=== PATIENT | male | born 1935 | race Caucasian/White ===

== ENCOUNTER 2018-04-07 10:16 | Day surgery (SDC) | payer MEDICARE ==
[~2018-04-07 10:16] MED LIST: ANCEF/STERILE WATER 2 GM/20 ML 2 GM/20 ML SYRINGE IV NR
[2018-04-07 11:44] LABS: Basophils # (Auto) 0.1 K/mm3 (0.0-0.1); Basophils % (Auto) 0.6 % (0.0-1.8); Eosinophils # (Auto) 0.1 K/mm3 (0.0-0.4); Eosinophils % (Auto) 1.3 % (0.0-4.3); Hematocrit 38.5 % (35.5-45.6); Hemoglobin 12.5 gm/dl (11.8-15.2); Lymphocytes # (Auto) 2.9 K/mm3 (1.2-5.4); Lymphocytes % (Auto) 26.6 % (13.4-35.0); Mean Corpuscular HGB Conc 32 % (32-34); Mean Corpuscular Hemoglobin 27 pg (28-32); Mean Corpuscular Volume 84 fl (84-94); Monocytes # (Auto) 0.5 K/mm3 (0.0-0.8); Monocytes % (Auto) 4.8 % (0.0-7.3); Platelet Count 320 K/mm3 (140-440); Red Blood Count 4.61 M/mm3 (3.65-5.03); Red Cell Distribution Width 15.4 % (13.2-15.2)
[2018-04-07 11:53] LABS: Partial Thromboplastin Time 34.4 Sec. (24.2-36.6)
[2018-04-07 12:05] LABS: BUN/Creatinine Ratio 14; Blood Urea Nitrogen 11 mg/dL (9-20); Calcium 9.2 mg/dL (8.4-10.2); Hemolysis Index 7
--- NOTE | 2018-04-07 12:15 | Anesthesia Consultation ---
Anesthesia Consult and Med Hx Date of service: 04/07/18 - Airway Anesthetic Teeth Evaluation: Poor ROM Head & Neck: Adequate Mental/Hyoid Distance: Adequate Mallampati Class: Class II Intubation Access Assessment: Good - Pulmonary Exam CTA: Yes - Cardiac Exam Cardiac Exam: RRR - Pre-Operative Health Status ASA Pre-Surgery Classification: ASA3 Proposed Anesthetic Plan: General - Cardiovascular System Hx Hypertension: Yes Hx Coronary Artery Disease: Yes (CA with stent placement 09/2010) Hx Heart Attack/AMI: Yes (09/2010) Hx Pacemaker: Yes - Central Nervous System Hx Psychiatric Problems: No - Other Systems Hx Alcohol Use: No Hx Substance Use: No Hx Cancer: No
[2018-04-07] MEDS: NACL 0.9% 1000 ML 1,000 ML IV SCH ×2 (12:24→13:30)
[2018-04-07] MEDS ORDERED: HEPARIN/NS 5000 UNIT/500ML(CATH LAB) 1,000 ML IR ONE (12:56)
[2018-04-07] MEDS ORDERED: HEPARIN 10,000 UNITS/10 ML ONE (12:56)
[2018-04-07] MEDS ORDERED: XYLOCAINE 2% INFILTRATI ONE (12:56)
[2018-04-07] MEDS ORDERED: LACTATED RINGERS 1,000 ML IV SCH (13:00)
[2018-04-07] MEDS ORDERED: DECADRON ONE (13:09)
[2018-04-07] MEDS ORDERED: XYLOCAINE MPF 2% ONE (13:09)
[2018-04-07] MEDS ORDERED: VERSED IV ONE (13:10)
[2018-04-07] MEDS ORDERED: DIPRIVAN 10 MG/ML IV ONE ×3 (13:11→13:12)
--- NOTE | 2018-04-07 15:14 | Short Stay Summary ---
Short Stay Documentation Date of service: 04/07/18 - History Principal diagnosis: PVD with wounds right foot H&P: obtained from office - Allergies and Medications Current Medications: Allergies No Known Allergies Allergy (Unverified 02/21/18 08:30) Home Medications Medication Instructions Recorded Confirmed Last Taken Type Furosemide [Lasix TAB] 40 mg PO QDAY 02/21/18 04/07/18 04/06/18 08:30 History Aspirin [Aspirin TAB] 325 mg PO QDAY #100 tablet 02/23/18 04/07/18 04/06/18 08: 30 Rx Clopidogrel [Plavix] 75 mg PO QDAY #30 tablet 02/23/18 04/07/18 04/06/18 08:30 Rx Gabapentin [Neurontin] 300 mg PO BID #60 capsule 02/23/18 04/07/18 04/06/18 08: 30 Rx Metoprolol [Lopressor TAB] 50 mg PO BID tablet 02/23/18 04/07/18 04/07/18 Rx amLODIPine [Norvasc] 10 mg PO DAILY #30 tablet 02/23/18 04/07/18 04/07/18 Rx Glimepiride [Amaryl] 2 mg PO QAM 03/31/18 04/07/18 04/06/18 08:30 History Iron 27 mg PO QDAY 03/31/18 04/07/18 04/06/18 08:30 History Active Medications Cefazolin Sodium (Ancef/Sterile Water 2 Gm/20 Ml) 2 gm in 20 mls @ 80 mls/hr IV PREOP NR; Protocol Stop: 04/07/18 23:59 Sodium Chloride (Nacl 0.9% 1000 Ml) 1,000 mls @ 42 mls/hr IV DIRECT KAJAL Last Admin: 04/07/18 13:30 Dose: 42 mls/hr Lactated Ringer's (Lactated Ringers) 1,000 mls @ 42 mls/hr IV DIRECT KAJAL - Brief post op/procedure progress note Date of procedure: 04/07/18 Pre-op diagnosis: PVD with wounds right foot Post-op diagnosis: same Procedure: RLE revasc Anesthesia: local Surgeon: ROBERTO MOORE Estimated blood loss: minimal Pathology: none Condition: stable - Disposition Condition at discharge: Good Disposition: [id number] TO HOME OR SELFCARE Short Stay Discharge Plan Activity: advance as tolerated Weight Bearing Status: Weight Bear as Tolerated Diet: regular Wound: keep clean and dry, per your surgeon's advice Follow up with: JJ MCKNIGHT MD [Primary Care Provider] - 7 Days
--- NOTE | 2018-04-07 15:19 | Operative Report ---
Operative Report Operative Report: Exam: Right lower extremity revascularization Clinical indication: Peripheral vascular disease with nonhealing wounds of the right foot and great toe Date: 04/07/2018 Procedure: Following an expiration of the risks, benefits and alternatives; written informed consent was obtained. Patient's right skin graft suite placed in supine position on the examination table. Initial ultrasound evaluation of his left groin demonstrated a patent left common femoral artery. The patient's left groin was prepped and draped in the usual sterile fashion. 1% lidocaine was used for anesthesia. Under ultrasound guidance, a 7 cm 21-gauge needle was advanced into the left common femoral artery. A 0.018 guidewire was advanced centrally. The needle was removed and a micro-sheath placed. The 0.018 guidewire was exchanged for a 0.035 guidewire and the like her sheath exchange for a 5 [place] vascular sheath. 5 [place] Omni flush catheter was advanced over the guidewire to the distal abdominal aorta. Aortography was performed. This demonstrates a patent distal abdominal aorta, bilateral common iliac and bilateral external iliac arteries. The bifurcation was crossed using the Omni flush catheter and 0.035 guidewire. Additional angiography was performed in the right external iliac artery, right superficial femoral artery proximally and right superficial femoral artery distally. This demonstrates scattered atherosclerotic disease involving the origin of the superficial femoral artery without hemodynamically significant stenosis. In the distal superficial femoral artery, there is an 70% lesion and in the P2 segment of the popliteal artery there is an 99% segmented lesion. Flow below the level of the P3 segment of popliteal artery is through collaterals alone as there are no named tibial vessels. The guidewire was advanced into the distal SFA and the pipe [place]cu[place]orean sheath exchange for a 6 [place]cu[place] 45 cm sheath. A 4 [place] vertebral catheter was then advanced over the guidewire and used across the lesions. The vertebral catheter was advanced into the P3 segment of the popliteal artery. A decision was made to treat these lesions. An 014 [place] core wire was advanced through the vertebral catheter with the tip placed in the distal aspect of the P3 artery. Atherectomy was performed using a [employer] atherectomy device. Post atherectomy angioplasty was performed using first a 4 mm balloon followed by 5 mm x 150 mm drug-coated balloon. Post atherectomy and anti-plasty imaging demonstrated improvement of the 70% SFA lesion to less than 10% and improvement of the 99% popliteal lesion to less than 20%. At this point, the catheters, guidewires and she swerved removed and hemostasis achieved in the left groin using an Angio-Seal arterial closure device. A sterile compression dressing was also placed. The patient tolerated the procedure well. There were no immediate post procedure complications. Sedation was performed by anesthesia services. Continuous cardiopulmonary monitoring was utilized. Impression: 1) Right lower extremity revascularization with atherectomy and angioplasty of a lesion in the distal SFA and mid popliteal artery with residual less than 10 and 20% stenosis.
[2018-04-07 15:40] VITALS: BP 166/76
[2018-04-07] MEDS ORDERED: NORCO 5/325 PO ONE (15:43)
== END 2018-04-07 17:00 | disposition home or self-care (01) ==
LOC: CATHLABREC 10:16
PROVIDERS: ATTEND Radiology Diagnostic Radiology
DX: I70.291 Other atherosclerosis of native arteries of extremities, right leg (principal); I25.10 Atherosclerotic heart disease of native coronary artery without angina pectoris; I10 Essential (primary) hypertension; I25.2 Old myocardial infarction; Z79.01 Long term (current) use of anticoagulants; Z79.82 Long term (current) use of aspirin; Z79.899 Other long term (current) drug therapy; Z95.5 Presence of coronary angioplasty implant and graft; Z98.890 Other specified postprocedural states
CPT/HCPCS: 36415; 37225; 75716; 80048; 85025; 85610; 85730; C1714; C1725; C1760; C1769; C1884; C1887; J1100; J1644; J2250; J2704; J7030; Q9967